=== PATIENT | male | born 1980 | race Caucasian/White ===

== ENCOUNTER 2023-09-01 18:25 | Inpatient (IN) | payer SELFPAY ==
[~2023-09-01] VITALS: Ht 170.2 cm; Wt 86.8 kg
[2023-09-01 19:42] LABS: EOSINOPHILS % 0.6 % (0.0-5.0); HEMATOCRIT. 42.7 % (42.0-52.0); HEMOGLOBIN. 14.5 g/dL (14.0-18.0); LYMPHOCYTES % 34.2 % (20.0-50.0); MEAN CORPUSCULAR HEMOGLOBIN 30.5 pg (28.0-32.0); MEAN CORPUSCULAR VOLUME 89.7 fL (80.0-94.0); MEAN PLATELET VOLUME 10.5 fl (7.4-10.4); MONOCYTES % 8.4 % (2.0-8.0); NEUTROPHILS % 55.8 % (40.0-76.0); PLATELET 215 x1000/uL (130-400); RED BLOOD CELL COUNT 4.76 mill/uL (4.7-6.1); RED CELL DISTRIBUTION WIDTH 13.4 % (11.6-14.6); WHITE BLOOD COUNT 6.2 x1000/uL (4.5-11.0)
[2023-09-01 19:47] LABS: CHLORIDE 112 mEq/L (98-107); INDEX HEMOLYSI 1 (1-3); INDEX ICTERIC 1 (1-4); INDEX LIPEMIC 1 (1-3); POTASSIUM 4.3 mEq/L (3.5-5.1); SODIUM 141 mEq/L (136-145)
[2023-09-01 19:48] LABS: CALCIUM 8.8 mg/dL (8.5-10.1); CARBON DIOXIDE 26 mEq/L (21-32); GLUCOSE 111 mg/dL (70-105); UREA NITROGEN BLOOD 22 mg/dL (7-21)
[2023-09-01 19:53] LABS: ALANINE AMINOTRANSFERASE 57 IU/L (13-61); ASPARTATE AMINOTRANSFERASE 22 IU/L (15-37); BILIRUBIN TOTAL 0.4 mg/dL (0.1-1.0)
[2023-09-01 19:56] LABS: CREATININE 1.1 mg/dL (0.6-1.3); PROTEIN TOTAL 7.6 g/dL (6.0-8.3); TROPONIN I HIGH SENSITIVITY 7 ng/L (<78)
[2023-09-02 00:19] LABS: BASOPHILS % 0.9 % (0.0-2.0); EOSINOPHILS % 0.7 % (0.0-5.0); HEMATOCRIT. 44.2 % (42.0-52.0); HEMOGLOBIN. 14.9 g/dL (14.0-18.0); LYMPHOCYTES % 29.9 % (20.0-50.0); MEAN CORPUSCULAR HEMOGLOBIN 30.5 pg (28.0-32.0); MEAN CORPUSCULAR HGB CONC 33.7 g/dL (31.0-37.0); MEAN CORPUSCULAR VOLUME 90.5 fL (80.0-94.0); MEAN PLATELET VOLUME 10.5 fl (7.4-10.4); MONOCYTES % 8.4 % (2.0-8.0); NEUTROPHILS % 60.1 % (40.0-76.0); PLATELET 220 x1000/uL (130-400); RED BLOOD CELL COUNT 4.88 mill/uL (4.7-6.1); RED CELL DISTRIBUTION WIDTH 13.2 % (11.6-14.6)
[2023-09-02 00:29] LABS: CHLORIDE 110 mEq/L (98-107); INDEX HEMOLYSI 1 (1-3); INDEX ICTERIC 1 (1-4); INDEX LIPEMIC 1 (1-3); POTASSIUM 4.8 mEq/L (3.5-5.1); SODIUM 138 mEq/L (136-145)
[2023-09-02] MEDS ORDERED: ASPIRIN 325MG EC TABLET PO ONE (00:30)
[2023-09-02 01:23] LABS: ALANINE AMINOTRANSFERASE 59 IU/L (13-61); ALBUMIN 4.3 g/dL (3.4-5.0); ASPARTATE AMINOTRANSFERASE 22 IU/L (15-37); BILIRUBIN TOTAL 0.8 mg/dL (0.1-1.0); CALCIUM 9.4 mg/dL (8.5-10.1); CARBON DIOXIDE 25 mEq/L (21-32); CREATININE 1.1 mg/dL (0.6-1.3); GLUCOSE 117 mg/dL (70-105); PROTEIN TOTAL 8.1 g/dL (6.0-8.3); TROPONIN I HIGH SENSITIVITY 6 ng/L (<78); UREA NITROGEN BLOOD 27 mg/dL (7-21)
[2023-09-02] MEDS ORDERED: MORPHINE SULFATE 2 MG/ML CPJ (NOT FOR IM USE) IV ONE (01:30)
[2023-09-02] MEDS ORDERED: ONDANSETRON HCL 4MG/2ML INJ IV ONE (01:30)
[2023-09-02 01:47] LABS: TROPONIN I HIGH SENSITIVITY 5 ng/L (<78)
[2023-09-02 02:28] LABS: NT PRO B-TYPE NATRIURETIC PEP 11 pg/mL (5-125)
[2023-09-02 08:30] VITALS: BP 137/89; PULSE 86; RESP 18; TEMP 97.7
[2023-09-02] MEDS ORDERED: IPRATROPIUM/ALBUTEROL 0.5-3(2.5)MG/3ML NEB HHN PRN (08:45)
[2023-09-02] MEDS ORDERED: ACETAMINOPHEN 325MG TABLET PO PRN ×2 (08:45)
[2023-09-02] MEDS ORDERED: DOCUSATE SODIUM 100MG CAPSULE PO PRN (08:45)
[2023-09-02] MEDS ORDERED: LORAZEPAM 0.5MG TABLET PO PRN (08:45)
[2023-09-02] MEDS ORDERED: HYDROCODONE/ACETAMINOPHEN 5/325MG TABLET PO PRN (08:45)
[2023-09-02] MEDS ORDERED: ONDANSETRON HCL 4MG/2ML INJ IV PRN (08:45)
[2023-09-02] MEDS ORDERED: NALOXONE HCL 0.4MG/ML VIAL IV PRN (08:45)
[2023-09-02] MEDS ORDERED: CLONIDINE 0.1MG TABLET PO PRN (08:45)
[2023-09-02 09:00] VITALS: BP 137/89; PULSE 84; RESP 18; TEMP 97.7
[2023-09-02 12:00] VITALS: BP 119/69; PULSE 91; RESP 18; TEMP 97.8
[2023-09-02 12:50] LABS: THYROID STIMULATING HORMONE 1.5 uIU/mL (0.36-3.74)
[2023-09-02] MEDS ORDERED: REGADENOSON 0.4 MG/5 ML IV NR (13:45)
[2023-09-02 16:00] VITALS: BP 127/76; PULSE 95; RESP 18; TEMP 97.6
[2023-09-02] MEDS ORDERED: SERT25TA MT (16:16)
[2023-09-02] MEDS ORDERED: GEMF600T PO (16:17)
[2023-09-02] MEDS: AMLODIPINE 2.5MG TABLET PO SCH (19:01)
[2023-09-02 20:00] VITALS: BP 120/70; PULSE 96; RESP 20; TEMP 97.8
[2023-09-02 22:10] LABS: CLARITY URINE CLEAR (CLEAR); COLOR URINE YELLOW (YELLOW); GLUCOSE URINE NEGATIVE (NEGATIVE); KETONES URINE NEGATIVE (NEGATIVE); LEUKOCYTE ESTERASE URINE NEGATIVE (NEGATIVE); NITRITE URINE NEGATIVE (NEGATIVE); OCCULT BLOOD URINE NEGATIVE (NEGATIVE); PROTEIN URINE NEGATIVE (NEGATIVE); UROBILINOGEN URINE 0.2 E.U./dL (0.2-1.0)
[2023-09-02 22:21] LABS: *AMPHETAMINES SCREEN URINE NEGATIVE (NEGATIVE); *BARBITURATES SCREEN URINE NEGATIVE (NEGATIVE); *BENZODIAZEPINES SCREEN URINE NEGATIVE (NEGATIVE); *COCAINE SCREEN URINE NEGATIVE (NEGATIVE); CANNABINOID URINE SCREEN NEGATIVE (NEGATIVE); ECSTASY MDMA SCREEN URINE NEGATIVE (NEGATIVE); OPIATES URINE SCREEN NEGATIVE (NEGATIVE); PHENCYCLIDINE URINE SCREEN NEGATIVE (NEGATIVE)
[2023-09-03] VITALS: BP 126/72; PULSE 94; RESP 20; TEMP 97.3
[2023-09-03 04:00] VITALS: BP 130/70; PULSE 97; RESP 20; TEMP 97.5
[2023-09-03 06:11] LABS: BASOPHILS % 0.6 % (0.0-2.0); EOSINOPHILS % 1.3 % (0.0-5.0); HEMATOCRIT. 43.5 % (42.0-52.0); HEMOGLOBIN. 15.1 g/dL (14.0-18.0); LYMPHOCYTES % 28.5 % (20.0-50.0); MEAN CORPUSCULAR HEMOGLOBIN 30.9 pg (28.0-32.0); MEAN CORPUSCULAR HGB CONC 34.8 g/dL (31.0-37.0); MEAN CORPUSCULAR VOLUME 88.8 fL (80.0-94.0); MONOCYTES % 8.3 % (2.0-8.0); NEUTROPHILS % 61.3 % (40.0-76.0); PLATELET 219 x1000/uL (130-400); RED CELL DISTRIBUTION WIDTH 13.1 % (11.6-14.6); WHITE BLOOD COUNT 7.3 x1000/uL (4.5-11.0)
[2023-09-03 08:00] VITALS: BP 118/68; PULSE 76; RESP 16; TEMP 97.5
[2023-09-03 08:32] LABS: ALANINE AMINOTRANSFERASE 52 IU/L (13-61); ALBUMIN 3.8 g/dL (3.4-5.0); ASPARTATE AMINOTRANSFERASE 19 IU/L (15-37); BILIRUBIN TOTAL 0.8 mg/dL (0.1-1.0); CALCIUM 8.4 mg/dL (8.5-10.1); CARBON DIOXIDE 25 mEq/L (21-32); CHLORIDE 110 mEq/L (98-107); GLUCOSE 119 mg/dL (70-105); INDEX HEMOLYSI 1 (1-3); INDEX ICTERIC 1 (1-4); INDEX LIPEMIC 1 (1-3); POTASSIUM 4.1 mEq/L (3.5-5.1); PROTEIN TOTAL 7.1 g/dL (6.0-8.3); SODIUM 140 mEq/L (136-145); TROPONIN I HIGH SENSITIVITY 5 ng/L (<78); UREA NITROGEN BLOOD 20 mg/dL (7-21)
[2023-09-03] MEDS: AMLODIPINE 2.5MG TABLET PO SCH (08:38)
[2023-09-03] MEDS ORDERED: AMLO2.5T45 PO (11:08)
[2023-09-03] MEDS ORDERED: LORA-249 MT (11:08)
[2023-09-03 12:00] VITALS: BP 119/80; PULSE 81; RESP 18; TEMP 96.9
[2023-09-03] MEDS ORDERED: REGADENOSON 0.4 MG/5 ML IV ONE (14:38)
[2023-09-03 16:00] VITALS: BP 110/73; PULSE 85; RESP 16; TEMP 97.9
[2023-09-03 18:58] VITALS: BP 150/39; PULSE 68; TEMP 97.3; O2SAT 100
== END 2023-09-03 21:30 | disposition home or self-care (01) | DRG 207 ==
LOC: ER 18:25 → MICUSO 09-02 00:22 → EDBEDREQ 09-02 00:32 → 7WST 09-02 08:39
PROVIDERS: ADMIT Internal Medicine; ATTEND Internal Medicine
DX: R00.2 Palpitations (principal); E78.00 Pure hypercholesterolemia, unspecified; F41.9 Anxiety disorder, unspecified; R07.89 Other chest pain; I10 Essential (primary) hypertension; E78.1 Pure hyperglyceridemia; F41.1 Generalized anxiety disorder; T50.995A Adverse effect of other drugs, medicaments and biological substances, initial encounter; Y92.89 Other specified places as the place of occurrence of the external cause
CPT/HCPCS: 36415; 71045; 78452; 80053; 80061; 80305; 81003; 83036; 83735; 83880; 84443; 84484; 85025; 85379; 93005; 93017; 93306; 99285; A9500; J2270; J2405; J2785